=== PATIENT | female | born 1990 | race Asian ===

== ENCOUNTER 2017-12-24 14:31 | Emergency (ER) | payer OTHER ==
[~2017-12-24] VITALS: Ht 154.9 cm; Wt 54.6 kg
[2017-12-24] MEDS ORDERED: NAPR220C2 PO (14:52)
[2017-12-24] MEDS ORDERED: IBUP200C8 PO (14:52)
[2017-12-24 15:03] LABS: MEAN CORPUSCULAR HEMOGLOBIN 31.6 pg (27.0-34.8); MEAN CORPUSCULAR HGB CONC 33.9 g/dL (32.4-35.8); MEAN CORPUSCULAR VOLUME 93.2 fL (80-100); MEAN PLATELET VOLUME 7.9 fL (7.4-10.4); PLATELET COUNT 210 x10^3/uL (130-400); RED BLOOD COUNT 4.47 x10^6/uL (3.82-5.3)
[2017-12-24] MEDS ORDERED: KETOROLAC 30 MG/1 ML ONE (15:16)
[2017-12-24 15:23] LABS: ALBUMIN 3.5 g/dL (3.4-5.0); ANION GAP 10 mmol/L (5-15); CHLORIDE 104 mmol/L (98-107)
[2017-12-24 15:28] LABS: CULTURE INDICATED? YES; MICROSCOPIC INDICATED
[2017-12-24 15:29] LABS: CREATININE 1.13 mg/dL (0.55-1.02)
[2017-12-24] MEDS ORDERED: KETOROLAC 30 MG/1 ML IM ONE (15:30)
[2017-12-24 15:35] LABS: T4 (THYROXINE) 10.9 mcg/dL (4.8-13.9); THYROID STIMULATING HORMONE 0.401 mIU/L (0.358-3.740)
[2017-12-24] MEDS ORDERED: CEFTRIAXONE 1,000 MG ONE (15:37)
[2017-12-24] MEDS ORDERED: LIDOCAINE-MPF 1%, 2ML ONE (15:38)
[2017-12-24 15:44] LABS: MD YES
[2017-12-24 15:48] LABS: BANDS%(MANUAL) 7 % (0-7); LYMPH#(MANUAL) 0.74 x10^3/uL (1-3.4); LYMPHS% (MANUAL) 4 % (22-44); MONOS#(MANUAL) 1.67 x10^3/uL (0.3-2.7); MONOS% (MANUAL) 9 % (2-9); SEGS% (MANUAL) 80 % (42-75)
[2017-12-24 15:49] LABS: <PLATELET ESTIMATE> ADEQUATE; <PLT MORPHOLOGY> NORMAL PLT MORPH; <RBC MORPHOLOGY> NORMAL
[2017-12-24] MEDS ORDERED: CEFTRIAXONE PMX 1GM/50ML 50 ML IV ONE (16:00)
[2017-12-24] MEDS ORDERED: SODIUM CHLORIDE 0.9% 1,000ML IVBOLUS ONE (16:00)
[2017-12-24 16:15] VITALS: BP 119/78
== END 2017-12-24 17:17 | disposition home or self-care (01) ==
LOC: ED 16:50
DX: N30.01 Acute cystitis with hematuria (principal); R51 Headache; E86.0 Dehydration; D72.829 Elevated white blood cell count, unspecified; E03.9 Hypothyroidism, unspecified
CPT/HCPCS: 36415; 71045; 80048; 81001; 82040; 83605; 84436; 84443; 84703; 85025; 87077; 87086; 93005; 96361; 96372; 96374; 99285; J0696; J1885; J7030; 87186